=== PATIENT | male | born 1955 | race American Indian/Alaskan Native ===

== ENCOUNTER 2018-07-28 19:42 | Inpatient (IN) | payer BC, OTHER ==
[2018-07-28] MEDS ORDERED: ASPIRIN PO ONE (19:51)
--- NOTE | 2018-07-28 20:21 | Emergency Department Report ---
HPI - General Chief Complaint: Chest Pain Time Seen by Provider: 07/28/18 20:07 - HPI HPI: Room 24 The patient is a 63-year-old male presenting with chief complaint of chest pain. Patient states his pain began today with intermittent substernal chest pain described as sharpness in nature. Patient admits to shortness of breath and diaphoresis but denies nausea/vomiting. Patient states she has also had dizziness and headache with this pain. The patient states she's never had a stress test or cardiac catheterization Location: Chest, see above Duration: Intermittent times one day Quality: Sharp Severity: Currently 0/10 Modifying factors: Patient from EMS (aspirin) helped Context: [see above] Mode of transportation: [not driving] ED Past Medical Hx - Past Medical History Previous Medical History?: No - Surgical History Past Surgical History?: No - Family History Family history: no significant - Social History Smoking Status: Current Every Day Smoker (1 pack per day) Substance Use Type: None (denies illicit drug use) ED Review of Systems ROS: Stated complaint: CHEST PAIN Other details as noted in HPI Constitutional: diaphoresis Eyes: denies: eye pain ENT: denies: throat pain Respiratory: shortness of breath Cardiovascular: chest pain Endocrine: no symptoms reported Gastrointestinal: denies: nausea, vomiting Genitourinary: denies: dysuria Musculoskeletal: denies: back pain Neurological: headache Physical Exam - Physical Exam Vital Signs: Vital Signs 07/28/18 19:49 Temperature 97.6 F Pulse Rate 65 Respiratory 16 Rate Blood Pressure 148/85 O2 Sat by Pulse 98 Oximetry Physical Exam: GENERAL: The patient is well-developed well-nourished male lying on stretcher not appearing to be in acute distress. [] HEENT: Normocephalic. Atraumatic. Extraocular motions are intact. Patient has moist mucous membranes. NECK: Supple. Trachea midline CHEST/LUNGS: Clear to auscultation. There is no respiratory distress noted. HEART/CARDIOVASCULAR: Regular. There is no tachycardia. There is no gallop rub or murmur. ABDOMEN: Abdomen is soft, nontender. Patient has normal bowel sounds. There is no abdominal distention. SKIN: There is no rash. There is no edema. There is no diaphoresis. NEURO: The patient is awake, alert, and oriented. The patient is cooperative. The patient has no focal neurologic deficits. The patient has normal speech MUSCULOSKELETAL: There is no evidence of acute injury. ED Course Vital Signs 07/28/18 19:49 Temperature 97.6 F Pulse Rate 65 Respiratory 16 Rate Blood Pressure 148/85 O2 Sat by Pulse 98 Oximetry ED Medical Decision Making - Lab Data Result diagrams: 07/28/18 20:21 07/28/18 20:21 Laboratory Tests 07/28/18 07/28/18 20:21 20:21 WBC 5.6 RBC 4.52 Hgb 13.2 Hct 37.9 MCV 84 MCH 29 MCHC 35 H RDW 14.8 Plt Count 200 Lymph % (Auto) 40.[address] [place] % (Auto) 9.0 H Eos % (Auto) 3.8 Baso % (Auto) 0.7 Lymph # 2.3 [place] # 0.5 Eos # 0.2 Baso # 0.0 Seg Neutrophils % 46.0 Seg Neutrophils # 2.6 Sodium 146 H Potassium 3.6 Chloride 104.7 Carbon Dioxide 29 Anion Gap 16 BUN 8 L Creatinine 0.9 Estimated GFR > 60 BUN/Creatinine Ratio 9 Glucose 152 H Calcium 9.1 Troponin T < 0.010 - EKG Data -: EKG Interpreted by Me EKG shows normal: sinus rhythm Rate: normal - EKG Data When compared to previous EKG there are: previous EKG unavailable Interpretation: nonspecific ST-T wave maykel (T-wave inversion in lead aVL) - Radiology Data Radiology results: report reviewed (chest x-ray), image reviewed (chest x-ray) interpreted by me: Chest x-ray-right lower lobe opacity. No pneumothorax [facility] [address] [place] [address] XRay Report Signed Patient: VEGA NEVAREZ MR#: [id number] : 1955 Acct:[id number] Age/Sex: 63 / M ADM Date: 07/28/18 Loc: ED Attending Dr: Ordering Physician: KISHOR ARMSTRONG MD Date of Service: 07/28/18 Procedure(s): XR chest 1V ap Accession Number(s): [id number] cc: KISHOR ARMSTRONG MD Fluoro Time In Minutes: PROCEDURE: XR CHEST 1V AP TECHNIQUE: Chest radiograph single view. HISTORY: Chest Pain COMPARISONS: None . FINDINGS: Heart: Normal. Mediastinum/Vessels: Normal. Lungs/Pleural space: The lungs are expanded. There are no infiltrates. There are calcified granulomas at the right lung base. There is no pleural effusion or pneumothorax.. Bony thorax: No acute osseous abnormality. Life support devices: None. IMPRESSION: The heart size is normal.. The lungs are expanded. There are no infiltrates. There are calcified granulomas at the right lung base. There is no pleural effusion or pneumothorax.. This document is electronically signed by Alec Grossman MD., Jul 28 2018 09:38:36 PM ET Transcribed By: CO Dictated By: ALEC GROSSMAN MD Electronically Authenticated By: ALEC GROSSMAN MD Signed Date/Time: 07/28/182039 DD/ 19 TD/TT: 07/28/182019 - Differential Diagnosis ACS, pericarditis, GERD Critical care attestation.: If time is entered above; I have spent that time in minutes in the direct care of this critically ill patient, excluding procedure time. ED Disposition Clinical Impression: Chest pain Disposition: OP ADMIT IP TO THIS HOSP Is pt being admited?: Yes Does the pt Need Aspirin: Yes Condition: Fair Instructions: Chest Pain (ED) Time of Disposition: 21:03 (hospitalist paged (Dr Phan))
[2018-07-28 20:32] LABS: Basophils % (Auto) 0.7 % (0.0-1.8); Eosinophils # (Auto) 0.2 K/mm3 (0.0-0.4); Eosinophils % (Auto) 3.8 % (0.0-4.3); Hematocrit 37.9 % (35.5-45.6); Hemoglobin 13.2 gm/dl (11.8-15.2); Lymphocytes # (Auto) 2.3 K/mm3 (1.2-5.4); Lymphocytes % (Auto) 40.5 % (13.4-35.0); Mean Corpuscular HGB Conc 35 % (32-34); Mean Corpuscular Volume 84 fl (84-94); Monocytes # (Auto) 0.5 K/mm3 (0.0-0.8); Platelet Count 200 K/mm3 (140-440); Red Blood Count 4.52 M/mm3 (3.65-5.03); Red Cell Distribution Width 14.8 % (13.2-15.2)
--- NOTE | 2018-07-28 20:40 | XRay Report ---
PROCEDURE: XR CHEST 1V AP TECHNIQUE: Chest radiograph single view. HISTORY: Chest Pain COMPARISONS: None . FINDINGS: Heart: Normal. Mediastinum/Vessels: Normal. Lungs/Pleural space: The lungs are expanded. There are no infiltrates. There are calcified granuloma s at the right lung base. There is no pleural effusion or pneumothorax.. Bony thorax: No acute osseous abnormality. Life support devices: None. IMPRESSION: The heart size is normal.. The lungs are expanded. There are no infiltrates. There are c alcified granulomas at the right lung base. There is no pleural effusion or pneumothorax.. This document is electronically signed by Alec Russo MD., Jul 28 2018 09:38:36 PM ET
[2018-07-28 20:54] LABS: BUN/Creatinine Ratio 9; Blood Urea Nitrogen 8 mg/dL (9-20); Calcium 9.1 mg/dL (8.4-10.2); Hemolysis Index 5
[2018-07-28] MEDS ORDERED: AMBIEN PO PRN (21:17)
[2018-07-28] MEDS ORDERED: PERCOCET 5/325 PO PRN (21:17)
[2018-07-28] MEDS ORDERED: TYLENOL PO PRN (21:17)
[2018-07-28] MEDS ORDERED: SODIUM CHLORIDE FLUSH SYRINGE 10 ML IV PRN (21:17)
[2018-07-28] MEDS ORDERED: DILAUDID IV PRN (21:17)
[2018-07-28] MEDS ORDERED: ZOFRAN IV PRN (21:17)
[2018-07-28] MEDS ORDERED: NS 0.45/KCL 20MEQ 20 MEQ/1,000 ML BAG IV SCH (22:00)
--- NOTE | 2018-07-28 22:02 | History and Physical Report ---
History of Present Illness Date of examination: 07/28/18 Date of admission: 07/28/18 21:17 Chief complaint: Chest pain History of present illness: Patient is a 63 year old -[place]i male with no known past medical history who presented to the ED on account of few hours history of left-sided chest pain. He described it as sharp in character, rated 5/10 and nonradiating. Pain waxes and wanes. No known aggravating or relieving factors. He has associated shortness of breath, palpitation, headaches and dizziness. He denied diaphoresis, leg swelling, cough, fever, chills, nausea, vomiting, syncope or loss of consciousness. No prior history of stress test. Past History Past Medical History: No medical history Past Surgical History: No surgical history Social history: smoking (patient has 45 years history of cigarette smoking. He currently smokes 1 pack per day. He denies alcohol or illicit drug use) Family history: other (no known family history of heart attack or sudden cardiac ) Medications and Allergies Allergies Allergy/AdvReac Type Severity Reaction Status Date / Time No Known Allergies Allergy Unverified 07/28/18 19:51 Home Medications Medication Instructions Recorded Confirmed Last Taken Type No Known Home Medications [No 07/28/18 07/28/18 Unknown History Reported Home Medications] Active Meds: Active Medications Acetaminophen (Tylenol) 650 mg PO Q4H PRN PRN Reason: Pain MILD(1-3)/Fever >100.5/RICH[place]DSON Aspirin (Baby Aspirin) 81 mg PO QDAY YANELIS Docusate Sodium (Colace) 100 mg PO BID YANELIS Enoxaparin Sodium (Lovenox) 40 mg SUB-Q QDAY YANELIS Famotidine (Pepcid) 10 mg PO BID YANELIS Hydromorphone HCl (Dilaudid) 0.5 mg IV Q3H PRN PRN Reason: Pain , Severe (7-10) Potassium Chloride/Sodium Chloride (Ns 0.45/Kcl 20meq) 20 meq in 1,000 mls @ 75 mls/hr IV DIRECT YANELIS Ondansetron HCl (Zofran) 4 mg IV Q8H PRN PRN Reason: Nausea And Vomiting Oxycodone/Acetaminophen (Percocet 5/325) 1 tab PO Q6H PRN PRN Reason: Pain, Moderate (4-6) Sodium Chloride (Sodium Chloride Flush Syringe 10 Ml) 10 ml IV BID YANELIS Sodium Chloride (Sodium Chloride Flush Syringe 10 Ml) 10 ml IV PRN PRN PRN Reason: LINE FLUSH Zolpidem Tartrate (Ambien) 5 mg PO QHS PRN PRN Reason: Insomnia Review of Systems All systems: negative (except as documented in the HPI, 14 point system reviewed were negative) Exam - Constitutional Vitals: Temp Pulse Resp BP Pulse Ox 97.6 F 65 16 148/85 98 07/28/18 19:49 07/28/18 19:49 07/28/18 19:49 07/28/18 19:49 07/28/18 19:49 General appearance: Present: no acute distress - EENT Eyes: Present: PERRL, EOM intact ENT: hearing intact, clear oral mucosa - Neck Neck: Present: supple - Respiratory Respiratory effort: normal Respiratory: bilateral: CTA - Cardiovascular Rhythm: regular Heart Sounds: Present: S1 & S2 - Extremities Extremities: No edema Peripheral Pulses: within normal limits - Abdominal General gastrointestinal: Present: soft, non-tender, non-distended, normal bowel sounds Male genitourinary: Present: deferred - Integumentary Integumentary: Present: clear, warm, dry - Musculoskeletal Musculoskeletal: strength equal bilaterally - Psychiatric Psychiatric: appropriate mood/affect, intact judgment & insight - Neurologic Neurologic: CNII-XII intact Results - Labs CBC & Chem 7: 07/28/18 20:21 07/28/18 20:21 Labs: Laboratory Last Values WBC 5.6 K/mm3 (4.5-11.0) 07/28/18 20:21 RBC 4.52 M/mm3 (3.65-5.03) 07/28/18 20:21 Hgb 13.2 gm/dl (11.8-15.2) 07/28/18 20:21 Hct 37.9 % (35.5-45.6) 07/28/18 20:21 MCV 84 fl (84-94) 07/28/18 20:21 MCH 29 pg (28-32) 07/28/18 20:21 MCHC 35 % (32-34) H 07/28/18 20:21 RDW 14.8 % (13.2-15.2) 07/28/18 20:21 Plt Count 200 K/mm3 (140-440) 07/28/18 20:21 Lymph % (Auto) 40.5 % (13.4-35.0) H 07/28/18 20:21 [place] % (Auto) 9.0 % (0.0-7.3) H 07/28/18 20:21 Eos % (Auto) 3.8 % (0.0-4.3) 07/28/18 20:21 Baso % (Auto) 0.7 % (0.0-1.8) 07/28/18 20:21 Lymph # 2.3 K/mm3 (1.2-5.4) 07/28/18 20:21 [place] # 0.5 K/mm3 (0.0-0.8) 07/28/18 20:21 Eos # 0.2 K/mm3 (0.0-0.4) 07/28/18 20:21 Baso # 0.0 K/mm3 (0.0-0.1) 07/28/18 20:21 Seg Neutrophils % 46.0 % (40.0-70.0) 07/28/18 20:21 Seg Neutrophils # 2.6 K/mm3 (1.8-7.7) 07/28/18 20:21 Sodium 146 mmol/L (137-145) H 07/28/18 20:21 Potassium 3.6 mmol/L (3.6-5.0) 07/28/18 20:21 Chloride 104.7 mmol/L (98-107) 07/28/18 20:21 Carbon Dioxide 29 mmol/L (22-30) 07/28/18 20:21 16 mmol/L 07/28/18 20:21 BUN 8 mg/dL (9-20) L 07/28/18 20:21 0.9 mg/dL (0.8-1.5) 07/28/18 20:21 Estimated GFR > 60 ml/min 07/28/18 20:21 9 % 07/28/18 20:21 Glucose 152 mg/dL (75-100) H 07/28/18 20:21 Calcium 9.1 mg/dL (8.4-10.2) 07/28/18 20:21 < 0.010 ng/mL (0.00-0.029) 07/28/18 20:21 Assessment and Plan Assessment and plan: Chest pain, rule out ACS -On chest pain pathway -Further investigative testing with stress test in a.m. Mild hypernatremia -Probably secondary to volume depletion -On IV fluid, will monitor sodium level Hyperglycemia -We'll check hemoglobin A1c level Tobacco abuse -Patient counseled on cessation DVT prophylaxis with Lovenox Disposition: Patient will be placed in observation status with plan for discharge if stress test is negative Time spent: 35 minutes
[2018-07-28] MEDS: PEPCID PO SCH (22:36)
[2018-07-28] MEDS: COLACE PO SCH (22:47)
[2018-07-28] MEDS: SODIUM CHLORIDE FLUSH SYRINGE 10 ML IV SCH (22:48)
[2018-07-29 06:37] LABS: Alanine Aminotransferase 40 units/L (7-56); Albumin 3.6 g/dL (3.9-5); BUN/Creatinine Ratio 13; Blood Urea Nitrogen 10 mg/dL (9-20); Calcium 8.4 mg/dL (8.4-10.2); Chol/HDL Ratio 2.11 %; HDL Cholesterol 71 mg/dL (40-59); Hemolysis Index 2; LDL Cholesterol,Direct 75 mg/dL (50-130)
[2018-07-29] MEDS ORDERED: LEXISCAN IV ONE ×2 (07:57→08:04)
--- NOTE | 2018-07-29 09:43 | Discharge Summary ---
Providers - Providers Date of Admission: 07/28/18 21:17 Attending physician: CALLIE ALVARADO MD 07/28/18 23:16 Consult to Case Management [CONS] Urgent Services Needed at Discharge: [facility] [employer] Notified:: lucinda Primary care physician: ALESHA DAVE Hospitalization Reason for admission: chest pain Condition: Stable Hospital course: Patient is a 63 year old -Wallisian male with no known past medical history who presented to the ED on account of few hours history of left-sided chest pain. He described it as sharp in character, rated 5/10 and nonradiating. Pain waxes and wanes. No known aggravating or relieving factors. He has associated shortness of breath, palpitation, headaches and dizziness. He denied diaphoresis, leg swelling, cough, fever, chills, nausea, vomiting, syncope or loss of consciousness. No prior history of stress test. Patient was counselled on Tobacco cessation extensively greater than 15mins. Chest pain secondary to costochondritis Mild hypernatremia Hyperglycemia Tobacco abuse Disposition: TO HOME OR SELFCARE Time spent for discharge: 35mins Core Measure Documentation - Palliative Care Palliative Care/ Comfort Measures: Not Applicable - Core Measures Any of the following diagnoses?: none Exam - Constitutional Vitals: Temp Pulse Resp BP Pulse Ox 97.6 F 49 L 16 108/65 95 07/29/18 03:36 07/29/18 08:15 07/29/18 03:36 07/29/18 03:36 07/29/18 03:36 General appearance: Present: no acute distress, well-nourished - EENT Eyes: Present: PERRL, EOM intact ENT: hearing intact, clear oral mucosa, dentition normal - Neck Neck: Present: supple, normal ROM - Respiratory Respiratory effort: normal Respiratory: bilateral: CTA - Cardiovascular Rhythm: regular Heart Sounds: Present: S1 & S2. Absent: systolic murmur, diastolic murmur - Extremities Extremities: no ischemia, pulses intact, pulses symmetrical, No edema, normal temperature, normal color, Full ROM Peripheral Pulses: within normal limits - Abdominal General gastrointestinal: Present: soft, non-tender, non-distended, normal bowel sounds - Integumentary Integumentary: Present: clear, warm, dry - Musculoskeletal Musculoskeletal: strength equal bilaterally - Psychiatric Psychiatric: appropriate mood/affect, intact judgment & insight - Neurologic Neurologic: CNII-XII intact, moves all extremities - Allied Health Allied health notes reviewed: nursing Plan Activity: advance as tolerated, fall precautions Diet: low fat Special Instructions: record daily BP diary Additional Instructions: keep a blood pressure diary and follow with PCP for possible initiation of BP meds [facility] [Referring] - 3-5 Days Prescriptions: levoFLOXacin [Levaquin] 750 mg PO QDAY #5 tablet Famotidine [Pepcid] 20 mg PO DAILY #30 tablet
[2018-07-29] MEDS ORDERED: BABY ASPIRIN PO SCH (10:00)
[2018-07-29 12:15] VITALS: BP 114/78
[2018-07-29] MEDS: PEPCID PO SCH (12:33)
[2018-07-29] MEDS: LOVENOX SUB-Q SCH ×2 (12:33→12:42)
[2018-07-29] MEDS: COLACE PO SCH ×2 (12:33→12:42)
[2018-07-29] MEDS: SODIUM CHLORIDE FLUSH SYRINGE 10 ML IV SCH (12:33)
== END 2018-07-29 16:41 | disposition home or self-care (01) | DRG 313 ==
LOC: ED 19:42 → 4A 21:17
PROVIDERS: ADMIT Internal Medicine; ATTEND Internal Medicine
DX: R07.9 Chest pain, unspecified (principal); E87.1 Hypo-osmolality and hyponatremia; F17.210 Nicotine dependence, cigarettes, uncomplicated; R73.9 Hyperglycemia, unspecified; Z71.6 Tobacco abuse counseling
CPT/HCPCS: 36415; 71045; 78452; 80048; 80053; 80061; 83036; 83735; 84484; 85025; 93005; 93010; 93017; G0378; A9502; J1650; J2785

== ENCOUNTER 2018-10-01 14:15 | Emergency (ER) | payer SELFPAY ==
[2018-10-01] MEDS ORDERED: ASPIRIN PO ONE (14:28)
--- NOTE | 2018-10-01 14:29 | Event Note ---
ED Screening Note Date of service: 10/01/18 Time: 14:26 ED Screening Note: This is a 63 y.o. M. that presents to the ER with dizziness and chest pain while at work. Reports symptoms started around 1030 and worsening. No PMH Current smoker, 1 ppd This initial assessment/diagnostic orders/clinical plan/treatment(s) is/are subject to change based on patients health status, clinical progression and re- assessment by fellow clinical providers in the ED. Further treatment and workup at subsequent clinical providers discretion. Patient/guardian urged not to elope from the ED as their condition may be serious if not clinically assessed and managed. Initial orders include: CXR, EKG, and labs
--- NOTE | 2018-10-01 15:00 | XRay Report ---
CHEST 2 VIEWS INDICATION / CLINICAL INFORMATION: Chest Pain. COMPARISON: Chest x-ray 07/28/2018 FINDINGS: SUPPORT DEVICES: None. HEART / MEDIASTINUM: Calcified bilateral perihilar granulomas. Heart is normal in size LUNGS / PLEURA: No significant pulmonary or pleural abnormality. Calcified right lower lobe granuloma , unchanged No pneumothorax. ADDITIONAL FINDINGS: No significant additional findings. IMPRESSION: 1. No acute findings. Stable prior granulomatous disease Signer Name: Khurram Tinajero MD Signed: 10/01/2018 2:55 PM Workstation Name: [id number]
[2018-10-01 15:06] LABS: Basophils # (Auto) 0.1 K/mm3 (0.0-0.1); Eosinophils # (Auto) 0.3 K/mm3 (0.0-0.4); Eosinophils % (Auto) 5.5 % (0.0-4.3); Hematocrit 37.3 % (35.5-45.6); Hemoglobin 13.3 gm/dl (11.8-15.2); Lymphocytes # (Auto) 2.2 K/mm3 (1.2-5.4); Lymphocytes % (Auto) 40.5 % (13.4-35.0); Mean Corpuscular HGB Conc 36 % (32-34); Mean Corpuscular Volume 85 fl (84-94); Monocytes # (Auto) 0.5 K/mm3 (0.0-0.8); Monocytes % (Auto) 8.2 % (0.0-7.3); Platelet Count 204 K/mm3 (140-440); Red Cell Distribution Width 14.4 % (13.2-15.2)
--- NOTE | 2018-10-01 15:20 | Emergency Department Report ---
ED Chest Pain HPI - General Chief Complaint: Chest Pain Stated Complaint: CHEST PAIN/DIZZINESS/WEAKNESS IN LEGS Time Seen by Provider: 10/01/18 14:26 Source: patient Mode of arrival: Ambulatory Limitations: No Limitations - History of Present Illness Initial Comments: Patient is a 63-year-old male who presents with chest pain that has been going on for the last couple of hours. Patient states the chest pain is located in the middle of his chest nothing makes it better and nothing makes it worse patient denies having any nausea or vomiting. Chest pain as a 5 out of 10. - Related Data Previous Rx's Medication Instructions Recorded Last Taken Type Famotidine [Pepcid] 20 mg PO DAILY #30 tablet 07/29/18 Unknown Rx levoFLOXacin [Levaquin] 750 mg PO QDAY #5 tablet 07/29/18 Unknown Rx traMADol [Ultram 50 MG tab] 50 mg PO Q6HR PRN #13 tablet 10/01/18 Unknown Rx Allergies Allergy/AdvReac Type Severity Reaction Status Date / Time No Known Allergies Allergy Verified 10/01/18 14:18 Heart Score - HEART Score History: Slightly suspicious EKG: Non-specific Age: 45-65 Risk factors: 1-2 risk factors Troponin: < normal limit HEART Score: 3 ED Review of Systems ROS: Stated complaint: CHEST PAIN/DIZZINESS/WEAKNESS IN LEGS Other details as noted in HPI Constitutional: denies: chills, fever Eyes: denies: eye pain, eye discharge, vision change ENT: denies: ear pain, throat pain Respiratory: denies: cough, shortness of breath, wheezing Cardiovascular: chest pain. denies: palpitations Endocrine: no symptoms reported Gastrointestinal: denies: abdominal pain, nausea, diarrhea Genitourinary: denies: urgency, dysuria Musculoskeletal: denies: back pain, joint swelling, arthralgia Skin: denies: rash, lesions Neurological: denies: headache, weakness, paresthesias Psychiatric: denies: anxiety, depression Hematological/Lymphatic: denies: easy bleeding, easy bruising ED Past Medical Hx - Past Medical History Previous Medical History?: No Hx Hypertension: No - Surgical History Past Surgical History?: No - Social History Smoking Status: Current Every Day Smoker Substance Use Type: None - Medications Home Medications: Home Medications Medication Instructions Recorded Confirmed Last Taken Type Famotidine [Pepcid] 20 mg PO DAILY #30 tablet 07/29/18 Unknown Rx levoFLOXacin [Levaquin] 750 mg PO QDAY #5 tablet 07/29/18 Unknown Rx traMADol [Ultram 50 MG tab] 50 mg PO Q6HR PRN #13 tablet 10/01/18 Unknown Rx ED Physical Exam - General Limitations: No Limitations General appearance: alert, in no apparent distress - Head Head exam: Present: atraumatic, normocephalic - Eye Eye exam: Present: normal appearance - ENT ENT exam: Present: mucous membranes moist - Neck Neck exam: Present: normal inspection - Respiratory Respiratory exam: Present: normal lung sounds bilaterally. Absent: respiratory distress - Cardiovascular Cardiovascular Exam: Present: regular rate, normal rhythm. Absent: systolic murmur, diastolic murmur, rubs, gallop - GI/Abdominal GI/Abdominal exam: Present: soft, normal bowel sounds - Rectal Rectal exam: Present: deferred - Extremities Exam Extremities exam: Present: normal inspection - Back Exam Back exam: Present: normal inspection - Neurological Exam Neurological exam: Present: alert, oriented X3 - Psychiatric Psychiatric exam: Present: normal affect, normal mood - Skin Skin exam: Present: warm, dry, intact, normal color. Absent: rash ED Course Vital Signs 10/01/18 14:26 Temperature 97.9 F Pulse Rate 83 Respiratory 18 Rate Blood Pressure 124/81 O2 Sat by Pulse 100 Oximetry SEBASTIAN score - Sebastian Score Age > 65: (0) No Aspirin use within the Past 7 Days: (1) Yes 3 or more CAD Risk Factors: (0) No 2 or more Angina events in past 24 hrs: (0) No Known CAD with more than 50% Stenosis: (0) No Elevated Cardiac Markers: (0) No ST Deviation Greater than 0.5mm: (0) No SEBASTIAN Score: 1 ED Medical Decision Making - Lab Data Result diagrams: 10/01/18 14:32 10/01/18 14:32 Lab Results 10/01/18 10/01/18 Range/Units 14:32 14:32 WBC 5.5 (4.5-11.0) K/mm3 RBC 4.40 (3.65-5.03) M/mm3 Hgb 13.3 (11.8-15.2) gm/dl Hct 37.3 (35.5-45.6) % MCV 85 (84-94) fl MCH 30 (28-32) pg MCHC 36 H (32-34) % RDW 14.4 (13.2-15.2) % Plt Count 204 (140-440) K/mm3 Lymph % (Auto) 40.5 H (13.4-35.0) % [place] % (Auto) 8.2 H (0.0-7.3) % Eos % (Auto) 5.5 H (0.0-4.3) % Baso % (Auto) 1.0 (0.0-1.8) % Lymph # 2.2 (1.2-5.4) K/mm3 [place] # 0.5 (0.0-0.8) K/mm3 Eos # 0.3 (0.0-0.4) K/mm3 Baso # 0.1 (0.0-0.1) K/mm3 Seg Neutrophils % 44.8 (40.0-70.0) % Seg Neutrophils # 2.5 (1.8-7.7) K/mm3 Sodium 145 (137-145) mmol/L Potassium 3.6 (3.6-5.0) mmol/L Chloride 107.9 H (98-107) mmol/L Carbon Dioxide 25 (22-30) mmol/L Anion Gap 16 mmol/L BUN 11 (9-20) mg/dL Creatinine 0.9 (0.8-1.5) mg/dL Estimated GFR > 60 ml/min BUN/Creatinine Ratio 12 % Glucose 82 (75-100) mg/dL Calcium 9.0 (8.4-10.2) mg/dL Troponin T < 0.010 (0.00-0.029) ng/mL - EKG Data -: EKG Interpreted by Ut - EKG Data 10/01/18 16:08 EKG shows normal sinus rhythm no ST segment elevation or T wave inversion normal axis. - Radiology Data Radiology results: report reviewed, image reviewed - Medical Decision Making Cdx: Costochondritis ddx: NSTEMI, Pneumothorax I will get cbc, bmp, ekg, cxr and will give patient oral percocet Pt's lab workup is unremarkable I will send pt home. Critical care attestation.: If time is entered above; I have spent that time in minutes in the direct care of this critically ill patient, excluding procedure time. ED Disposition Clinical Impression: Chest pain Qualifiers: Chest pain type: unspecified Qualified Code(s): R07.9 - Chest pain, unspecified Disposition: DC-01 TO HOME OR SELFCARE Is pt being admited?: No Does the pt Need Aspirin: No Condition: Stable Instructions: Chest Pain (ED) Prescriptions: traMADol [Ultram 50 MG tab] 50 mg PO Q6HR PRN #13 tablet PRN Reason: Pain Referrals: PRIMARY CARE, [Primary Care Provider] - 3-5 Days
[2018-10-01 15:26] LABS: BUN/Creatinine Ratio 12; Blood Urea Nitrogen 11 mg/dL (9-20); Hemolysis Index 4
[2018-10-01] MEDS ORDERED: PERCOCET 5/325 PO ONE (15:40)
[2018-10-01 16:43] VITALS: BP 136/88
== END 2018-10-01 16:43 | disposition home or self-care (01) ==
LOC: ED 14:15
DX: R07.89 Other chest pain (principal); F17.200 Nicotine dependence, unspecified, uncomplicated
CPT/HCPCS: 36415; 71046; 80048; 84484; 85025; 93005; 93010

== ENCOUNTER 2018-11-09 12:40 | Emergency (ER) | payer BC, OTHER ==
--- NOTE | 2018-11-09 12:49 | Emergency Department Report ---
Blank Doc - Documentation Documentation: 63-year-old male that presents with blood in stool yesterday. This initial assessment/diagnostic orders/clinical plan/treatment(s) is/are subject to change based on patient's health status, clinical progression and re- assessment by fellow clinical providers in the ED. Further treatment and workup at subsequent clinical providers discretion. Patient/guardians urged not to elope from the ED as their condition may be serious if not clinically assessed and managed. Initial orders include: 1- Patient sent to MAIN ED for further evaluation and treatment 2- labs 3- UA
[2018-11-09 12:50] VITALS: BP 130/74
[2018-11-09 13:30] LABS: Basophils # (Auto) 0.1 K/mm3 (0.0-0.1); Basophils % (Auto) 0.9 % (0.0-1.8); Eosinophils # (Auto) 0.4 K/mm3 (0.0-0.4); Eosinophils % (Auto) 6.1 % (0.0-4.3); Hematocrit 37.5 % (35.5-45.6); Hemoglobin 13.1 gm/dl (11.8-15.2); Lymphocytes # (Auto) 2.7 K/mm3 (1.2-5.4); Lymphocytes % (Auto) 41.3 % (13.4-35.0); Mean Corpuscular HGB Conc 35 % (32-34); Mean Corpuscular Volume 84 fl (84-94); Monocytes # (Auto) 0.6 K/mm3 (0.0-0.8); Monocytes % (Auto) 9.8 % (0.0-7.3); Platelet Count 189 K/mm3 (140-440); Red Blood Count 4.46 M/mm3 (3.65-5.03); Red Cell Distribution Width 14.5 % (13.2-15.2)
[2018-11-09 13:40] LABS: INR 1.12 (0.87-1.13)
[2018-11-09 13:41] LABS: Partial Thromboplastin Time 29.2 Sec. (24.2-36.6)
[2018-11-09 13:53] LABS: Alanine Aminotransferase 58 units/L (7-56); BUN/Creatinine Ratio 9; Blood Urea Nitrogen 8 mg/dL (9-20); Calcium 8.8 mg/dL (8.4-10.2); Hemolysis Index 8
--- NOTE | 2018-11-09 17:16 | Emergency Department Report ---
ED General Adult HPI - General Chief complaint: GI Bleed Stated complaint: BLOOD IN STOOL Time Seen by Provider: 11/09/18 12:48 Source: patient Mode of arrival: Ambulatory Limitations: No Limitations - History of Present Illness Initial comments: Patient is a 63-year-old male presents emergency room with complaints of one episode of possible blood in the stool that occurred yesterday. He states he is not sure if it was blood. He states he did eat some red candies yesterday. States he had a normal bowel movement today with no blood in the stool. he denies any abdominal pain, nausea, vomiting, fever, chills, any other symptoms. States he has never had a colonoscopy before. Patient denies being on any blood thinners or any aspirin or ibuprofen use. He denies any past medical history her allergies medications. - Related Data Previous Rx's Medication Instructions Recorded Last Taken Type Famotidine [Pepcid] 20 mg PO DAILY #30 tablet 07/29/18 Unknown Rx levoFLOXacin [Levaquin] 750 mg PO QDAY #5 tablet 07/29/18 Unknown Rx traMADol [Ultram 50 MG tab] 50 mg PO Q6HR PRN #13 tablet 10/01/18 Unknown Rx Allergies Allergy/AdvReac Type Severity Reaction Status Date / Time No Known Allergies Allergy Verified 10/01/18 14:18 ED Review of Systems ROS: Stated complaint: BLOOD IN STOOL Other details as noted in HPI Comment: All other systems reviewed and negative ED Past Medical Hx - Past Medical History Hx Hypertension: No - Social History Smoking Status: Current Every Day Smoker Substance Use Type: None - Medications Home Medications: Home Medications Medication Instructions Recorded Confirmed Last Taken Type Famotidine [Pepcid] 20 mg PO DAILY #30 tablet 07/29/18 Unknown Rx levoFLOXacin [Levaquin] 750 mg PO QDAY #5 tablet 07/29/18 Unknown Rx traMADol [Ultram 50 MG tab] 50 mg PO Q6HR PRN #13 tablet 10/01/18 Unknown Rx ED Physical Exam - General Limitations: No Limitations General appearance: alert, in no apparent distress - Head Head exam: Present: atraumatic, normocephalic - Eye Eye exam: Present: normal appearance - ENT ENT exam: Present: mucous membranes moist - Respiratory Respiratory exam: Present: normal lung sounds bilaterally. Absent: respiratory distress, wheezes, rales, rhonchi, stridor, chest wall tenderness, accessory m uscle use, decreased breath sounds, prolonged expiratory - Cardiovascular Cardiovascular Exam: Present: regular rate, normal rhythm, normal heart sounds. Absent: systolic murmur, diastolic murmur, rubs, gallop - GI/Abdominal GI/Abdominal exam: Present: soft, normal bowel sounds. Absent: distended, tenderness, guarding, rebound, rigid - Rectal Rectal exam: Present: normal inspection, normal rectal tone, heme (-) stool, other (no gross blood, clinical research scientist: FORREST Cowan). Absent: hemorrhoids, mass, tenderness - Neurological Exam Neurological exam: Present: alert, oriented X3 - Psychiatric Psychiatric exam: Present: normal affect, normal mood - Skin Skin exam: Present: warm, dry, intact ED Course Vital Signs 11/09/18 12:48 Temperature 97.9 F Pulse Rate 69 Respiratory 12 Rate Blood Pressure 130/74 [Left] O2 Sat by Pulse 97 Oximetry ED Medical Decision Making - Lab Data Result diagrams: 11/09/18 13:18 11/09/18 13:18 Lab Results 11/09/18 11/09/18 11/09/18 Range/Units 13:18 13:18 13:18 WBC 6.6 (4.5-11.0) K/mm3 RBC 4.46 (3.65-5.03) M/mm3 Hgb 13.1 (11.8-15.2) gm/dl Hct 37.5 (35.5-45.6) % MCV 84 (84-94) fl MCH 29 (28-32) pg MCHC 35 H (32-34) % RDW 14.5 (13.2-15.2) % Plt Count 189 (140-440) K/mm3 Lymph % (Auto) 41.3 H (13.4-35.0) % Lamb % (Auto) 9.8 H (0.0-7.3) % Eos % (Auto) 6.1 H (0.0-4.3) % Baso % (Auto) 0.9 (0.0-1.8) % Lymph # 2.7 (1.2-5.4) K/mm3 Lamb # 0.6 (0.0-0.8) K/mm3 Eos # 0.4 (0.0-0.4) K/mm3 Baso # 0.1 (0.0-0.1) K/mm3 Seg Neutrophils % 41.9 (40.0-70.0) % Seg Neutrophils # 2.8 (1.8-7.7) K/mm3 PT 14.1 (12.2-14.9) Sec. INR 1.12 (0.87-1.13) APTT 29.2 (24.2-36.6) Sec. Sodium 143 (137-145) mmol/L Potassium 3.5 L (3.6-5.0) mmol/L Chloride 104.8 (98-107) mmol/L Carbon Dioxide 28 (22-30) mmol/L Anion Gap 14 mmol/L BUN 8 L (9-20) mg/dL Creatinine 0.9 (0.8-1.5) mg/dL Estimated GFR > 60 ml/min BUN/Creatinine Ratio 9 % Glucose 106 H (75-100) mg/dL Calcium 8.8 (8.4-10.2) mg/dL Total Bilirubin 0.70 (0.1-1.2) mg/dL AST 49 H (5-40) units/L ALT 58 H (7-56) units/L Alkaline Phosphatase 71 (35-129) units/L Total Protein 6.9 (6.3-8.2) g/dL Albumin 4.0 (3.9-5) g/dL Albumin/Globulin Ratio 1.4 % Lipase 25 (13-60) units/L - Medical Decision Making Patient is a 63-year-old male presents emergency room with complaints of one episode of possible blood in the stool that occurred yesterday. He states he is not sure if it was blood. He states he did eat some red candies yesterday. States he had a normal bowel movement today with no blood in the stool. he denies any abdominal pain, nausea, vomiting, fever, chills, any other symptoms. States he has never had a colonoscopy before. Patient denies being on any blood thinners or any aspirin or ibuprofen use. He denies any past medical history or allergies medications. vitals are stable. labs are stable, H/H is no rmal. no abd tenderness on exam. hemocult performed and is negative. clinical research scientist: FORREST cowan present for rectal examination which is normal, no gross blood, no hemorrhoids. the red substance pt saw could be related to the candies he was eating since he did not see it today when he had a BM. discussed with pt given his age he still needed to follow up with GI doctor to have a colonscopy. advised pt to please follow up with a GI doctor to schedule your colonoscopy due to being over 50 years of age. return to the emergency room for any new or worsening symptoms. - Differential Diagnosis hemorrhoids, fissure, GI bleed, diverticulosis Critical care attestation.: If time is entered above; I have spent that time in minutes in the direct care of this critically ill patient, excluding procedure time. ED Disposition Clinical Impression: Blood in stool Disposition: DC-01 TO HOME OR SELFCARE Is pt being admited?: No Does the pt Need Aspirin: No Condition: Stable Instructions: Rectal Bleeding (ED) Additional Instructions: Please follow up with a GI doctor to schedule your colonoscopy due to being over 50 years of age. return to the emergency room for any new or worsening symptoms. Referrals: [facility] [Provider Group] - 2-3 Days Time of Disposition: 17:16 Print Language: SAMI
== END 2018-11-09 17:21 | disposition home or self-care (01) ==
LOC: ED 12:40
DX: K92.1 Melena (principal); F17.200 Nicotine dependence, unspecified, uncomplicated; Z79.899 Other long term (current) drug therapy
CPT/HCPCS: 36415; 80053; 83690; 85025; 85610; 85730

== ENCOUNTER 2019-02-19 17:11 | Emergency (ER) | payer SELFPAY ==
--- NOTE | 2019-02-19 18:13 | Event Note ---
ED Screening Note Date of service: 02/19/19 Time: 18:06 ED Screening Note: c/o SOB, RICHARDSON, left arm/leg tingling and numbness x 8 am +mild drift of left arm +CP This initial assessment/diagnostic orders/clinical plan/treatment(s) is/are subject to change based on patients health status, clinical progression and re- assessment by fellow clinical providers in the ED. Further treatment and workup at subsequent clinical providers discretion. Patient/guardian urged not to elope from the ED as their condition may be serious if not clinically assessed and managed. Initial orders include: MAIN CT labs CXR
[2019-02-19 19:25] LABS: Basophils # (Auto) 0.1 K/mm3 (0.0-0.1); Basophils % (Auto) 0.8 % (0.0-1.8); Eosinophils # (Auto) 0.4 K/mm3 (0.0-0.4); Eosinophils % (Auto) 4.4 % (0.0-4.3); Hematocrit 43.8 % (35.5-45.6); Hemoglobin 15.3 gm/dl (11.8-15.2); Lymphocytes # (Auto) 2.6 K/mm3 (1.2-5.4); Lymphocytes % (Auto) 32.6 % (13.4-35.0); Mean Corpuscular HGB Conc 35 % (32-34); Mean Corpuscular Volume 84 fl (84-94); Monocytes # (Auto) 0.9 K/mm3 (0.0-0.8); Monocytes % (Auto) 11.1 % (0.0-7.3); Platelet Count 246 K/mm3 (140-440); Red Blood Count 5.25 M/mm3 (3.65-5.03); Red Cell Distribution Width 14.5 % (13.2-15.2)
[2019-02-19 19:43] LABS: Alanine Aminotransferase 43 units/L (7-56); Albumin 4.5 g/dL (3.9-5); BUN/Creatinine Ratio 14; Blood Urea Nitrogen 14 mg/dL (9-20); Calcium 9.5 mg/dL (8.4-10.2); Hemolysis Index 10
--- NOTE | 2019-02-19 20:09 | Cat Scan Report ---
CT HEAD WITHOUT CONTRAST INDICATION: left sided numbness TECHNIQUE: Axial slices were obtained through the head. Coronal and sagittal reformatted images were obtained. COMPARISON: None available. FINDINGS: There is no intracranial hemorrhage or extra-axial fluid collection. Ventricles, basilar cisterns, an d sulci appear within normal limits for age. There is no mass lesion or midline shift. No acute omar torial infarct is identified. There are small focal hypodensities in the cerebral white matter likely representing microangiopathic ischemic change. Bone windows demonstrate no acute osseous abnormality. Paranasal sinuses and mastoid air cells appear clear. TECHNIQUE: All CT scans at this facility use dose modulation, iterative reconstruction, automated ex posure control, weight based dosing, when appropriate, to reduce radiation dose to as low as reasonab ly achievable. IMPRESSION: 1. There is microangiopathy. There is no intracranial hemorrhage or mass effect. Ventricles are charlotte l in size and position. Signer Name: Hayden Little MD Signed: 02/19/2019 8:05 PM Workstation Name: [id number]
[2019-02-20] MEDS ORDERED: ACETAMINOPHEN 325 MG TAB PO ONE (03:47)
[2019-02-20] MEDS ORDERED: SODIUM CHLORIDE 0.9% 1000 ML 1,000 ML IV ONE (03:50)
--- NOTE | 2019-02-20 04:31 | XRay Report ---
CHEST 1 VIEW INDICATION: tachycardia. COMPARISON: 10/01/2018 FINDINGS: SUPPORT DEVICES: None. HEART / MEDIASTINUM: No significant abnormality. LUNGS / PLEURA: Calcified right lower lobe granuloma. No significant pulmonary or pleural abnormality . No pneumothorax. ADDITIONAL FINDINGS: IMPRESSION: 1. No acute findings. Signer Name: Keon Feng MD Signed: 02/20/2019 4:27 AM Workstation Name: [id number]
--- NOTE | 2019-02-20 05:41 | Emergency Department Report ---
ED General Adult HPI - General Chief complaint: Neuro Symptoms/Deficit Stated complaint: HEADACHE/SOB/TINGLING L LEG Time Seen by Provider: 02/19/19 18:06 Source: patient Mode of arrival: Ambulatory Limitations: No Limitations - History of Present Illness Initial comments: Patient reports that he awoke with a headache yesterday morning. Denies taking any OTC medication for headache. Reports yesterday afternoon he began to feel some shortness of breath, chest pain, and left calf pain episodic. Denies recent travel, denies fam hx CAD/PE/DVT. Denies drugs/alcohol. Denies trauma. Reports he came into the ER because the back of his left leg felt uncomfortable. Reports normally healthy and that he has no concerns at physical exams for his job. Reports he walks daily. Severity scale (0 -10): 8 - Related Data Previous Rx's Medication Instructions Recorded Last Taken Type Famotidine [Pepcid] 20 mg PO DAILY #30 tablet 07/29/18 Unknown Rx levoFLOXacin [Levaquin] 750 mg PO QDAY #5 tablet 07/29/18 Unknown Rx traMADoL [Ultram 50 MG tab] 50 mg PO Q6HR PRN #13 tablet 10/01/18 Unknown Rx Allergies Allergy/AdvReac Type Severity Reaction Status Date / Time No Known Allergies Allergy Verified 10/01/18 14:18 ED Review of Systems ROS: Stated complaint: HEADACHE/SOB/TINGLING L LEG Other details as noted in HPI Other: GENERAL: No weight change, fatigue, fever, chills, or night sweats SKIN: No changes in skin or hair, no itching, no rashes, no jaundice HEAD: No trauma EYES: No blurriness, tearing, itching, acute visual loss, conjunctival discoloration, or scleral icterus EARS: No hearing loss, tinnitus, vertigo, or earache NOSE: No rhinorrhea, stuffiness, sneezing, itching, or epistaxis MOUTH: No bleeding gums, hoarseness, sore throat, or swelling CARDIAC: Chest pain. No new murmur, palpitations, dyspnea on exertion, orthopnea, PND, or edema RESPIRATORY: Shortness of breath. No wheeze, cough, sputum production, hemoptysis GI: No abdominal pain, nausea, vomiting, dysphagia, diarrhea, constipation, hematemesis, melena, hematochezia URINARY: No frequency, urgency, polyuria, dysuria, hematuria, or incontinence MUSCULOSKELETAL: No muscle weakness, joint stiffness, decrease in range of motion, redness, swelling NEUROLOGIC: Headache. No syncope, loss of sensation, numbness, tingling, tremors, weakness, paralysis, seizures HEMATOLOGIC: No anemia, easy bruising, bleeding, petechiae, or purpura ENDOCRINE: No hot or cold intolerance, sweating, polyuria, polydipsia or, polyphagia no thyroid problems PSYCHIATRIC: No change in mood, no anxiety, no depression ED Past Medical Hx - Past Medical History Previous Medical History?: Yes Hx Hypertension: No Additional medical history: mass in chest. - Surgical History Past Surgical History?: No - Social History Smoking Status: Current Every Day Smoker Substance Use Type: None - Medications Home Medications: Home Medications Medication Instructions Recorded Confirmed Last Taken Type Famotidine [Pepcid] 20 mg PO DAILY #30 tablet 07/29/18 Unknown Rx levoFLOXacin [Levaquin] 750 mg PO QDAY #5 tablet 07/29/18 Unknown Rx traMADoL [Ultram 50 MG tab] 50 mg PO Q6HR PRN #13 tablet 10/01/18 Unknown Rx ED Physical Exam - General Limitations: No Limitations - Other Other exam information: GENERAL: Patient in no acute distress HEAD: Normocephalic, atraumatic EYES: PERRLA, EOM intact, no scleral icterus, no conjunctival hemorrhage, visual dickinson and acuity wnl NOSE: No tenderness, discharge, sinus tenderness MOUTH: No erythema, bleeding, exudate HEART: Regular rate and rhythm, no murmur, S1-S2 are auscultated, no edema, pulses are symmetric LUNGS: No respiratory distress. Bilateral breath sounds, No tachypnea, No retractions, No wheezing, rales, rhonchi ABDOMEN: Normal bowel sounds, abdomen soft, no tenderness, no rebound, no guarding, no distention, no masses, no CVA tenderness MUSCULOSKELETAL: Normal joint range of motion, no redness, no swelling, no tenderness NEUROLOGIC: GCS 15, Alert and Oriented x3, Cranial nerves intact, normal sensation, normal strength, no cerebellar deficit, NIHSS 0 PSYCHIATRIC: No homicidal or suicidal ideation, no anxiety, no depression, no hallucinations SKIN: Skin is warm and dry, no wounds, no rashes NEUROLOGIC: normal gait ED Course Vital Signs 02/19/19 02/20/19 02/20/19 18:12 03:10 04:15 Temperature 98.8 F 98.0 F Pulse Rate 97 H 83 Respiratory 18 18 18 Rate Blood Pressure 129/80 Blood Pressure 122/90 [Right] O2 Sat by Pulse 99 97 Oximetry 02/20/19 02/20/19 05:15 06:30 Temperature Pulse Rate 77 Respiratory 18 20 Rate Blood Pressure Blood Pressure 106/67 [Right] O2 Sat by Pulse Oximetry ED Medical Decision Making - Lab Data Result diagrams: 02/19/19 19:08 02/19/19 19:08 Laboratory Results - last 24 hr 02/19/19 02/19/19 02/20/19 19:08 19:08 04:16 WBC 8.1 RBC 5.25 H Hgb 15.3 H Hct 43.8 MCV 84 MCH 29 MCHC 35 H RDW 14.5 Plt Count 246 Lymph % (Auto) 32.6 [place] % (Auto) 11.1 H Eos % (Auto) 4.4 H Baso % (Auto) 0.8 Lymph # 2.6 [place] # 0.9 H Eos # 0.4 Baso # 0.1 Seg Neutrophils % 51.1 Seg Neutrophils # 4.1 D-Dimer 374.07 H Sodium 145 Potassium 3.8 Chloride 104.6 Carbon Dioxide 26 Anion Gap 18 BUN 14 Creatinine 1.0 Estimated GFR > 60 BUN/Creatinine Ratio 14 Glucose 96 Calcium 9.5 Total Bilirubin 0.90 AST 42 H ALT 43 Alkaline Phosphatase 71 Troponin T < 0.010 Total Protein 8.0 Albumin 4.5 Albumin/Globulin Ratio 1.3 - EKG Data When compared to previous EKG there are: no significant change - Medical Decision Making Patient comfortable. Updated with results. Patient signed out to Dr. Banuelos for further evaluation. Plan if CTA and U/s doppler negative, and patient comfortable, discharge with outpatient follow up. Return if any worsening. Critical care attestation.: If time is entered above; I have spent that time in minutes in the direct care of this critically ill patient, excluding procedure time. ED Disposition Clinical Impression: TIA (transient ischemic attack) Chest pain Qualifiers: Chest pain type: unspecified Qualified Code(s): R07.9 - Chest pain, unspecified Headache Qualifiers: Headache type: unspecified Headache chronicity pattern: unspecified pattern Intractability: not intractable Qualified Code(s): R51 - Headache Disposition: DC-07 LEFT AGAINST MED ADVICE Is pt being admited?: No Condition: Stable Instructions: Transient Ischemic Attack (ED), Chest Pain (ED), Acute Headache (ED) Additional Instructions: I would recommend that you take an aspirin a day. Follow-up with your primary care provider. Further evaluation is necessary and consultation with a neurologist. You have signed out against medical advice. Referrals: PRIMARY CARE, [Primary Care Provider] - 2-3 Days MARV DE JESUS MD [Staff Physician] - 2-3 Days BO PATTEN MD [Staff Physician] - 2-3 Days Forms: Work/School Release Form(ED)
[2019-02-20 06:31] VITALS: BP 106/67
--- NOTE | 2019-02-20 06:43 | Cat Scan Report ---
CTA CHEST WITH IV CONTRAST INDICATION / CLINICAL INFORMATION: Pain. TECHNIQUE: Axial CT images were obtained through the chest after injection of 100 cc Omnipaque 350 milligrams pe rcent IV contrast. 3 plane MIP and/or 3D reconstructions were produced. All CT scans at this location are performed using CT dose reduction for ALARA by means of automated exposure control. COMPARISON: None available. FINDINGS: PULMONARY ARTERIES: No pulmonary emboli. THORACIC AORTA: No significant abnormality. HEART: No significant abnormality. CORONARY ARTERIES: No significant calcification. PLEURA: No pleural effusion. No pneumothorax. LYMPH NODES: No significant adenopathy. LUNGS: No acute air space or interstitial disease. Calcified granuloma is present right lower lobe ADDITIONAL FINDINGS: Gastric distention UPPER ABDOMEN: No acute findings. SKELETAL STRUCTURES: No significant osseous abnormality. IMPRESSION: 1. No CT evidence for pulmonary embolism. 2. No acute findings. Signer Name: Keon Feng MD Signed: 02/20/2019 6:38 AM Workstation Name: [id number]
[2019-02-20 06:50] LABS: Bilirubin,Urine NEG (Negative); Blood,Urine NEG (Negative); Color,Urine Amber (Yellow); Mucus,Urine 2+ /HPF; Protein,Urine <15 mg/dL mg/dL (Negative)
[2019-02-20] MEDS ORDERED: ASPIRIN 325 MG TAB PO ONE (07:33)
--- NOTE | 2019-02-20 07:33 | Emergency Department Report ---
Blank Doc - Documentation Documentation: This is 63-year-old man that was signed out to me by Dr. Smith. He has had a negative CTA now. He had a mildly elevated d-dimer. History as I obtained from the patient was a bit difficult because the patient told me "I don't like being interrogated". Did explain to him the hospital process and that I needed to get firsthand information. He partially acquiesced. He told me that he was walking developed a headache, was short of breath, developed weakness in his left arm and left leg while walking. He had difficulty walking and tingling in these extremities. That lasted for about an hour. He states that he is familiar with stroke because his has had several. He states that is the main reason why he came to the hospital. He denied any sore of chest pain. Beyond that he wasn't unwilling historian. He did however confirm to me that he smoked for 50 years. The previous physician thought to the contrary that he was a nonsmoker. Review of system: Impaired due to lack of cooperation. He does not complain of leg pain or swelling Past medical history Patient states that he was admitted 3 months ago here for chest pain. He states he had a heart scan and stress test. He was not diagnosed with cardiac related chest pain he states. He does not take aspirin. Social history 50 year smoker Physical exam HEENT normocephalic atraumatic sclerae nonicteric Neck supple no meningismus Cardiovascular S1-S2 regular rate without murmur Chest clear to auscultation GI abdomen soft nontender Musculoskeletal full range of motion, no deformity Neurological NIH stroke score is 0 Cerebella testing is normal Mental status exam is normal Impression History is compatible with TIA Plan Admission is recommended. Patient has full mental capacity. He has refused. He is well aware of the risks and benefits. He is to sign out AMA. Daily aspirin is recommended.
== END 2019-02-20 08:20 | disposition left against medical advice (07) ==
LOC: ED 17:11
DX: R07.89 Other chest pain (principal); R51 Headache; R06.02 Shortness of breath; F17.200 Nicotine dependence, unspecified, uncomplicated
CPT/HCPCS: 36415; 70450; 71045; 71275; 80053; 81001; 84484; 85025; 85379; 93005; 93010; 99285; J7030; Q9967